=== PATIENT | female | born 1965 | race Caucasian/White ===

== ENCOUNTER 2016-03-19 06:39 | Day surgery (SDC) | payer BC ==
[2016-03-19] MEDS ORDERED: MIDAZOLAM HCL 2MG/2ML VIAL IV ONE (14:00)
[2016-03-19] MEDS ORDERED: LIDOCAINE 2% MDV (20MG/ML) 20ML VIAL IV ONE (14:00)
[2016-03-19] MEDS ORDERED: PROPOFOL 10 MG/ML VIAL IV ONE (14:00)
--- NOTE | 2016-03-22 07:50 | Operative Note ---
DATE OF SURGERY: 03/19/2016 SURGEON: Taylor De Anda MD OPERATION: COLONOSCOPY. INDICATIONS: This is a 51-year-old female with average risk for colorectal cancer who presented for screening colonoscopy. POSTOPERATIVE DIAGNOSIS: Normal colon. ANESTHESIA: Sedation is per Anesthesia. Pulse oximetry was monitored throughout the procedure to maintain O2 saturation of 90% or greater. Supplemental oxygen was administered via nasal cannula. Cardiac and vital signs were monitored throughout the duration of the procedure, and they were stable. The procedure of colonoscopy and risks and alternatives of the procedure, including the risk of bleeding and perforation, among others, were explained to the patient who voiced understanding and desired to have the procedure done. Physical examination was performed, and the patient was found stable for sedation. PROCEDURE: The patient was placed in the left lateral position. Sedation was initiated. A digital rectal exam was performed and showed some mild external hemorrhoids with no palpable rectal masses. An Olympus PCF-180AL colonoscope was then inserted into the rectum under direct visualization. It was advanced to the cecum without difficulty. The ileocecal valve and appendiceal orifice were identified and photographed. The colonic mucosa was carefully examined upon introduction of the colonoscope. There were no lesions noted. Upon withdrawal of the colonoscope, the colonic mucosa was carefully examined and there were no lesions noted. In the rectum, retroflexion was performed and grade 1 internal hemorrhoids were noted. The colonoscope was then withdrawn and the procedure was terminated. The patient tolerated the procedure well without any immediate complications. She remained with stable vital signs and was transferred to the recovery room. RECOMMENDATIONS: 1. She should be on a high-fiber diet. 2. She is to have a repeat colonoscopy for screening in 10 years. Thank you for allowing me to participate in the care of your patient. Taylor De Anda MD CC: Vannessa MCKEON
== END 2016-03-19 09:01 | disposition home or self-care (01) ==
LOC: HOP 06:39
PROVIDERS: ATTEND Internal Medicine Gastroenterology
DX: Z12.11 Encounter for screening for malignant neoplasm of colon (principal); I10 Essential (primary) hypertension; E11.9 Type 2 diabetes mellitus without complications; Z79.84 Long term (current) use of oral hypoglycemic drugs

== ENCOUNTER 2017-03-06 11:14 | Emergency (ER) | payer SELFPAY ==
--- NOTE | 2017-03-06 11:35 | Emergency Department Record ---
History of Present Illness - General Chief complaint: Abscess Stated complaint: BLISTER ON L FOOT Time Seen by Provider: 03/06/17 11:34 Source: Patient, Family Mode of Arrival: Ambulatory Limitations: No limitations - History of Present Illness Initial comments: pt has an ulcer on her foot that has been getting progressively worse. she has not been taking her insulin because she cannot afford it and does not have insurance. she has an appt w dr arboleda in 4 days Onset/Timin -: Week(s) Hx Tetanus Toxoid Vaccination: Yes Year of Tetanus Vaccination: 2013 Location: L foot Severity: Moderate Severity scale (1-10): 6 Consistency: Constant Improves with: Rest Worsens with: Palpation, Movement Treatments Prior to Arrival: OTC topical medication - Related Data Previous Rx's Medication Instructions Recorded Amoxicillin/Potassium Clav 1 tab PO BID #20 tablet 03/06/17 [Augmentin 875Mg/125Mg] Allergies Allergy/AdvReac Type Severity Reaction Status Date / Time metoprolol tartrate Allergy Intermediate SWELLING Verified 03/06/17 11:28 [From Lopressor] (GENERAL) statins Allergy Intermediate SWELLING Uncoded 03/06/17 11:28 (GENERAL) Travel Screening - Travel/Exposure Within Last 30 Days Have you traveled within the last 30 days?: No - Travel/Exposure Within Last Year Have you traveled outside the [place] in the last year?: No - Additonal Travel Details Have you been exposed to anyone with a communicable illness?: No - Travel Symptoms Symptom Screening: None Review of Systems Reviewed: No additional complaints except as noted below Constitutional: Reports: As per HPI. Denies: Chills, Fever, Malaise, Night sweats, Weakness, Weight change Eyes: Reports: As per HPI. Denies: Eye discharge, Eye pain, Photophobia, Vision change ENT: Reports: As per HPI. Denies: Congestion, Dental pain, Ear pain, Epistaxis , Hearing loss, Throat pain Respiratory: Reports: As per HPI. Denies: Cough, Dyspnea, Hemoptysis, Stridor, Wheezes Cardiovascular: Reports: As per HPI. Denies: Arrhythmia, Chest pain, Dyspnea on exertion, Edema, Murmurs, Orthopnea, Palpitations, Paroxysmal nocturnal dyspnea, Rheumatic Fever, Syncope Endocrine: Reports: As per HPI. Denies: Fatigue, Heat or cold intolerance, Polydipsia, Polyuria Gastrointestinal: Reports: As per HPI. Denies: Abdominal pain, Constipation, Diarrhea, Hematemesis, Hematochezia, Melena, Nausea, Vomiting Genitourinary: Reports: As per HPI. Denies: Abnormal menses, Discharge, Dyspareunia, Dysuria, Frequency, Hematuria, Incontinence, Retention, Urgency Musculoskeletal: Reports: As per HPI. Denies: Arthralgia, Back pain, Gout, Joint swelling, Myalgia, Neck pain Skin: Reports: As per HPI. Denies: Bruising, Change in color, Change in hair/ nails, Lesions, Pruritus, Rash Neurological: Reports: As per HPI. Denies: Abnormal gait, Confusion, Headache, Numbness, Paresthesias, Seizure, Tingling, Tremors, Vertigo, Weakness Psychiatric: Reports: As per HPI. Denies: Anxiety, Auditory hallucinations, Depression, Homicidal thoughts, Suicidal thoughts, Visual hallucinations Hematological/Lymphatic: Reports: As per HPI. Denies: Anemia, Blood Clots, Easy bleeding, Easy bruising, Swollen glands Past Medical History - SOCIAL HISTORY Smoking Status: Former smoker Alcohol Use: None Drug Use: None - RESPIRATORY Hx Respiratory Disorders: Yes Hx Sleep Apnea: Yes Hx of CPAP: No - CARDIOVASCULAR Hx Cardio Disorders: Yes Hx Cardiac Cath: Yes Hx Hypertension: Yes Comment:: quadruple bypass - NEURO Hx Neuro Disorders: Yes Hx Neuropathy: Yes - GI Hx GI Disorders: Yes Hx Reflux: Yes - Hx Genitourinary Disorders: Yes Hx UTI: Yes - ENDOCRINE Hx Endocrine Disorders: Yes - MUSCULOSKELETAL Hx Musculoskeletal Disorders: Yes Hx Arthritis: Yes - PSYCH Hx Psych Problems: Yes Hx Depression: Yes - HEMATOLOGY/ONCOLOGY Hx Hematology/Oncology Disorders: Yes Hx Blood Transfusions: Yes (after heart surgery) Family Medical History Any Significant Family History?: No Hx Cancer: Grandparents Hx Diabetes: Father, Mother Hx Heart Disease: Father Hx Kidney Disease: Father Physical Exam - General General Appearance: Alert, Oriented x3, Cooperative, Mild distress - Head Head exam: Normal inspection - Eye Eye exam: Normal appearance, PERRL, EOMI Pupils: Normal accommodation - ENT ENT exam: Normal exam, Mucous membranes moist, Normal external ear exam, Normal orophraynx Ear exam: Normal external inspection. negative: External canal tenderness Nasal Exam: Normal inspection. negative: Discharge, Sinus tenderness Mouth exam: Normal external inspection, Tongue normal Teeth exam: Normal inspection. negative: Dental caries Throat exam: Normal inspection. negative: Tonsillar erythema, Tonsillar exudate - Neck Neck exam: Normal inspection, Full ROM. negative: Tenderness - Respiratory Respiratory exam: Normal lung sounds bilaterally. negative: Respiratory distress - Cardiovascular Cardiovascular Exam: Regular rate, Normal rhythm, Normal heart sounds - GI/Abdominal GI/Abdominal exam: Soft, Normal bowel sounds. negative: Tenderness - Rectal Rectal exam: Deferred - exam: Deferred - Extremities Extremities exam: Normal inspection, Full ROM, Normal capillary refill, Tenderness Image of Feet: 1 - uler w tenderness and swelling - Back Back exam: Reports: Normal inspection, Full ROM. Denies: Muscle spasm, Rash noted, Tenderness - Neurological Neurological exam: Alert, CN II-XII intact, Normal gait, Oriented X3 - Psychiatric Psychiatric exam: Normal affect, Normal mood - Skin Skin exam: Dry, Intact, Normal color, Warm Course Vital Signs 03/06/17 11:18 Temperature 99.5 F Pulse Rate 80 Respiratory 18 Rate Blood Pressure 207/100 Pulse Ox 98 - Reevaluation(s) Reevaluation #1: 03/06/17 15:11 d/w susan who is arranging wound care and social work re getting insurance Medical Decision Making - Lab Data Result diagrams: 03/06/17 12:04 03/06/17 12:04 Disposition Disposition: Discharge Clinical Impression: Foot ulcer due to secondary DM Disposition: Home, Self-Care Condition: (1) Good Instructions: Diabetic Foot Ulcers (ED), Foot Care for People with Diabetes (ED ) Additional Instructions: follow up with dr arboleda on . return sooner if worse. soak foot 4 times a day. elevate foot. Prescriptions: Amoxicillin/Potassium Clav [Augmentin 875Mg/125Mg] 1 tab PO BID #20 tablet Forms: Patient Portal Access Quality - Quality Measures Quality Measures: N/A - Blood Pressure Screening Does Patient Have Any of the Following: Active Dx of HTN Blood Pressure Classification: Hypertensive Reading Systolic Measurement: 207 Diastolic Measurement: 100 Screening for High Blood Pressure: Patient Exclusion, Hx of HTN [G9744]
[2017-03-06] MEDS ORDERED: CARVEDILOL 3.125 MG TABLET PO ONE (11:47)
[2017-03-06] MEDS ORDERED: LISINOPRIL 10 MG TABLET PO ONE (11:47)
[2017-03-06 12:11] LABS: BASO % 0.3 % (0-6); EOS % 2.8 % (0-6); GRAN % 76.4 % (47-80); HEMOGLOBIN 11.9 gm/dl (11.6-16.0); LYMPH % 13.8 % (16-45); MEAN CELL VOLUME 84.9 fl (81-97); MEAN CORPUSCULAR HEMOGLOBIN 28.1 pg (27-33); MEAN CORPUSCULAR HGB CONC 33.1 g/dl (32-36); MEAN PLATELET VOLUME 9.9 fl (7.4-10.4); MONO % 6.7 % (0-9); PLATELET COUNT 235 K/uL (130-400); RED BLOOD COUNT 4.24 M/uL (3.80-5.40); RED CELL DISTRIBUTION WIDTH 11.9 % (11.5-14.5); WHITE BLOOD COUNT W/O DIFF 10.9 K/uL (4.2-12.2)
[2017-03-06 12:24] LABS: BLOOD UREA NITROGEN 12 mg/dL (6-20); CREATININE 0.6 mg/dL (0.5-0.9); EST GLOMERULAR FILTRATION RATE > 60 mL/min
[2017-03-06 12:27] LABS: GLUCOSE,RANDOM 275 mg/dL (74-109)
--- NOTE | 2017-03-07 08:17 | RADIOLOGY REPORT ---
EXAM: LEFT FOOT, THREE VIEWS HISTORY: PATIENT HAS A BLISTER ON THE PLANTAR ASPECT OF THE FOOT BETWEEN THE FIRST AND SECOND DIGITS. TECHNIQUE: Three views of the left foot are provided without comparison examinations. FINDINGS: There is no radiographic evidence of a fracture or dislocation of the left foot. Subchondral cysts are identified within the articular surface at the base of the second proximal phalanx. There is flattening of the second metatarsal head. 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 Small soft tissue ulcer is noted at the plantar aspect of the metatarsal phalangeal joints on the lateral radiograph. There is no osseous cortical destruction to suggest osteomyelitis, however, osteomyelitis cannot be excluded. If there is further clinical concern then MRI of the left foot can be obtained for further evaluation. IMPRESSION: 1. SMALL SOFT TISSUE ULCER IDENTIFIED AT THE PLANTAR ASPECT OF THE METATARSAL PHALANGEAL JOINTS DISCUSSED ABOVE. THERE IS NO OSSEOUS CORTICAL DESTRUCTION TO SUGGEST OSTEOMYELITIS. OSTEOMYELITIS, HOWEVER, CANNOT BE ENTIRELY EXCLUDED. IF THERE IS FURTHER CLINICAL CONCERN THEN MRI OF THE LEFT FOOT CAN BE OBTAINED FOR FURTHER EVALUATION. 2. 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 JOB NUMBER: [id number] [facility]
== END 2017-03-06 15:22 | disposition home or self-care (01) ==
LOC: ER 11:14
DX: E11.621 Type 2 diabetes mellitus with foot ulcer (principal); L97.529 Non-pressure chronic ulcer of other part of left foot with unspecified severity; E11.65 Type 2 diabetes mellitus with hyperglycemia; I10 Essential (primary) hypertension; Z87.891 Personal history of nicotine dependence; Z79.4 Long term (current) use of insulin
CPT/HCPCS: 99283; 99284; 85025; 80048; 73630; J3490

== ENCOUNTER 2017-05-30 18:12 | Emergency (ER) | payer BC ==
[2017-05-30] MEDS ORDERED: CLINDAMYCIN 600MG/50ML PREMIX 600 MG/50 ML BAG IVPB ONE (18:58)
[2017-05-30] MEDS ORDERED: ACETAMINOPHEN 500 MG TABLET PO ONE (19:04)
[2017-05-30] MEDS ORDERED: 0.9 % SODIUM CHLORIDE 1,000 ML BAG IV ONE (19:04)
[2017-05-30 19:07] LABS: BASO % 0.2 % (0-6); EOS % 0.3 % (0-6); HEMATOCRIT 34.4 % (35.0-47.0); HEMOGLOBIN 11.3 gm/dl (11.6-16.0); LYMPH % 4.8 % (16-45); MEAN CELL VOLUME 85.8 fl (81-97); MEAN CORPUSCULAR HGB CONC 32.8 g/dl (32-36); MEAN PLATELET VOLUME 10.1 fl (7.4-10.4); MONO % 7.9 % (0-9); PLATELET COUNT 261 K/uL (130-400); RED BLOOD COUNT 4.01 M/uL (3.80-5.40); RED CELL DISTRIBUTION WIDTH 12.5 % (11.5-14.5); WHITE BLOOD COUNT W/O DIFF 12.9 K/uL (4.2-12.2)
[2017-05-30 19:13] LABS: BLOOD UREA NITROGEN 19 mg/dL (6-20); EST GLOMERULAR FILTRATION RATE > 60 mL/min
[2017-05-30 19:14] LABS: MEAN CORPUSCULAR HEMOGLOBIN 28.1 pg (27-33); TOTAL PROTEIN 7.7 g/dL (6.6-8.7)
[2017-05-30 19:16] LABS: GLUCOSE,RANDOM 260 mg/dL (74-109)
[2017-05-30 19:18] LABS: ALB/GLOB RATIO 1.1 (1.1-1.8); ALBUMIN 4.1 g/dL (4.0-5.0); ALT/SGPT 32 U/L (<33); AST/SGOT 34 U/L (10.0-35.0)
[2017-05-30 19:19] LABS: ALKALINE PHOSPHATASE 162 U/L (35-104)
--- NOTE | 2017-05-30 20:26 | Emergency Department Record ---
History of Present Illness - General Chief complaint: Abscess Stated complaint: LT FOOT ULCER,CHILLS,FEVER,HEAD/BODY ACHES Time Seen by Provider: 05/30/17 18:48 Source: Patient Mode of Arrival: Ambulatory Limitations: No limitations - History of Present Illness Initial comments: pt has had an ulcer on the bottom of her foot for 2months that she has been seeing dr choi for. she had part of it cut out last week. over the last day she has been getting fevers, headache, swelling of her foot with redness and streaking up her ankle MD complaint: Abscess/boil Onset/Timin -: Days(s) Hx Tetanus Toxoid Vaccination: Yes Year of Tetanus Vaccination: 2013 Location: Generalized Severity: Mild Severity scale (1-10): 3 Quality: Aching Consistency: Constant Improves with: None Worsens with: None Context: None Associated symptoms: Chills, Fever, Malaise, Nausea Treatments Prior to Arrival: None - Related Data Home Medications Medication Instructions Recorded Confirmed Last Taken Insulin Detemir [Levemir] 30 unit SQ QAM 05/30/17 05/30/17 05/30/17 Insulin Detemir [Levemir] 40 unit SQ QPM 05/30/17 05/30/17 Unknown Allergies Allergy/AdvReac Type Severity Reaction Status Date / Time metoprolol tartrate Allergy Intermediate SWELLING Verified 05/30/17 18:41 [From Lopressor] (GENERAL) statins Allergy Intermediate SWELLING Uncoded 05/13/17 18:03 (GENERAL) Travel Screening - Travel/Exposure Within Last 30 Days Have you traveled within the last 30 days?: No Review of Systems Reviewed: No additional complaints except as noted below Constitutional: Reports: As per HPI, Chills, Fever. Denies: Malaise, Night sweats, Weakness, Weight change Eyes: Reports: As per HPI. Denies: Eye discharge, Eye pain, Photophobia, Vision change ENT: Reports: As per HPI. Denies: Congestion, Dental pain, Ear pain, Epistaxis , Hearing loss, Throat pain Respiratory: Reports: As per HPI. Denies: Cough, Dyspnea, Hemoptysis, Stridor, Wheezes Cardiovascular: Reports: As per HPI, Murmurs. Denies: Arrhythmia, Chest pain, Dyspnea on exertion, Edema, Orthopnea, Palpitations, Paroxysmal nocturnal dyspnea, Rheumatic Fever, Syncope Endocrine: Reports: As per HPI. Denies: Fatigue, Heat or cold intolerance, Polydipsia, Polyuria Gastrointestinal: Reports: As per HPI. Denies: Abdominal pain, Constipation, Diarrhea, Hematemesis, Hematochezia, Melena, Nausea, Vomiting Genitourinary: Reports: As per HPI. Denies: Abnormal menses, Discharge, Dyspareunia, Dysuria, Frequency, Hematuria, Incontinence, Retention, Urgency Musculoskeletal: Reports: As per HPI. Denies: Arthralgia, Back pain, Gout, Joint swelling, Myalgia, Neck pain Skin: Reports: As per HPI, Rash. Denies: Bruising, Change in color, Change in hair/nails, Lesions, Pruritus Neurological: Reports: As per HPI. Denies: Abnormal gait, Confusion, Headache, Numbness, Paresthesias, Seizure, Tingling, Tremors, Vertigo, Weakness Psychiatric: Reports: As per HPI. Denies: Anxiety, Auditory hallucinations, Depression, Homicidal thoughts, Suicidal thoughts, Visual hallucinations Hematological/Lymphatic: Reports: As per HPI. Denies: Anemia, Blood Clots, Easy bleeding, Easy bruising, Swollen glands Past Medical History - SOCIAL HISTORY Smoking Status: Former smoker Alcohol Use: None Drug Use: None - RESPIRATORY Hx Respiratory Disorders: Yes Hx Sleep Apnea: Yes Hx of CPAP: No - CARDIOVASCULAR Hx Cardio Disorders: Yes Hx Cardiac Cath: Yes Hx Chest Pain: Yes Hx Hypertension: Yes Comment:: quadruple bypass/stents - NEURO Hx Neuro Disorders: Yes Hx Neuropathy: Yes - GI Hx GI Disorders: Yes Hx Reflux: Yes - Hx Genitourinary Disorders: Yes Hx UTI: Yes - ENDOCRINE Hx Endocrine Disorders: Yes Hx Diabetes: Yes Hx Thyroid Disease: Yes Comment:: foot ulcer - MUSCULOSKELETAL Hx Musculoskeletal Disorders: Yes Hx Arthritis: Yes - PSYCH Hx Psych Problems: Yes Hx Depression: Yes - HEMATOLOGY/ONCOLOGY Hx Hematology/Oncology Disorders: Yes Hx Blood Transfusions: Yes (after heart surgery) Family Medical History Any Significant Family History?: Yes Hx Cancer: Grandparents Hx Diabetes: Father, Mother Hx Heart Disease: Father Hx Kidney Disease: Father Physical Exam - General General Appearance: Alert, Oriented x3, Cooperative, Mild distress - Head Head exam: Normal inspection - Eye Eye exam: Normal appearance, PERRL, EOMI Pupils: Normal accommodation - ENT ENT exam: Normal exam, Mucous membranes moist, Normal external ear exam, Normal orophraynx Ear exam: Normal external inspection. negative: External canal tenderness Nasal Exam: Normal inspection. negative: Discharge, Sinus tenderness Mouth exam: Normal external inspection, Tongue normal Teeth exam: Normal inspection. negative: Dental caries Throat exam: Normal inspection. negative: Tonsillar erythema, Tonsillar exudate - Neck Neck exam: Normal inspection, Full ROM. negative: Tenderness - Respiratory Respiratory exam: Normal lung sounds bilaterally. negative: Respiratory distress - Cardiovascular Cardiovascular Exam: Regular rate, Normal rhythm, Normal heart sounds, Systolic murmur - GI/Abdominal GI/Abdominal exam: Soft, Normal bowel sounds. negative: Tenderness - Rectal Rectal exam: Deferred - exam: Deferred - Extremities Extremities exam: Full ROM, Normal capillary refill, Tenderness Image of Feet: 1 - swelling , redness, tenderness 2 - ulcer - Back Back exam: Reports: Normal inspection, Full ROM. Denies: Muscle spasm, Rash noted, Tenderness - Neurological Neurological exam: Alert, CN II-XII intact, Normal gait, Oriented X3 - Psychiatric Psychiatric exam: Normal affect, Normal mood - Skin Skin exam: Dry, Intact, Normal color, Warm Course Vital Signs 05/30/17 18:36 Temperature 102.1 F H Pulse Rate 87 Respiratory 20 Rate Blood Pressure 123/84 Pulse Ox 97 Medical Decision Making - Lab Data Result diagrams: 05/30/17 18:40 05/30/17 18:40 Lab Results 05/30/17 05/30/17 Range/Units 18:40 18:40 WBC 12.9 H (4.2-12.2) K/uL RBC 4.01 (3.80-5.40) M/uL Hgb 11.3 L (11.6-16.0) gm/dl Hct 34.4 L (35.0-47.0) % MCV 85.8 (81-97) fl MCH 28.1 (27-33) pg MCHC 32.8 (32-36) g/dl RDW 12.5 (11.5-14.5) % Plt Count 261 (130-400) K/uL MPV 10.1 (7.4-10.4) fl Neutrophils % 73.0 (47-80) % Band Neutrophils % 12.0 H (0-5) % Lymphocytes % 4.8 L (16-45) % Monocytes % 7.9 (0-9) % Eosinophils % 0.3 (0-6) % Basophils % 0.2 (0-6) % Lymphocytes 7.0 L (16-45) % Monocytes 8.0 (0-9) % Basophils 0.0 (0-6) % Eosinophil Count 0.0 (0-6) % Sodium 130 L (136-145) mmol/L Potassium 4.6 H (3.4-4.5) mmol/L Chloride 85 L (98-107) mmol/L Carbon Dioxide 27.0 (22-29) mmol/L Anion Gap 18.0 H (7-16) BUN 19 (6-20) mg/dL Creatinine 1.0 H (0.5-0.9) mg/dL Estimated GFR > 60 mL/min Random Glucose 260 H (74-109) mg/dL Calcium 8.4 L (8.6-10.0) mg/dL Total Bilirubin 0.70 (0.2-1.0) mg/dL AST 34 (10.0-35.0) U/L ALT 32 (<33) U/L Alkaline Phosphatase 162 H (35-104) U/L Total Protein 7.7 (6.6-8.7) g/dL Albumin 4.1 (4.0-5.0) g/dL Globulin 3.6 (1.4-4.8) gm/dL Albumin/Globulin Ratio 1.1 (1.1-1.8) Disposition Disposition: Admit Clinical Impression: Diabetic foot infection Disposition: Still a Patient at [facility] Decision to Admit: Admit from ER Decision to Admit Date: 05/30/17 Decision to Admit Time: 20:31 Quality - Quality Measures Quality Measures: N/A - Blood Pressure Screening Does Patient Have Any of the Following: No Blood Pressure Classification: Pre-Hypertensive BP Reading Systolic Measurement: 123 Diastolic Measurement: 84 Screening for High Blood Pressure: < Pre-Hypertensive BP, F/U Documented > [ G8950] Pre-Hypertensive Follow-up Interventions: Follow-up with rescreen every year.
[2017-05-30] MEDS ORDERED: HYDROMORPHONE HCL 2 MG/ML VIAL IVP ONE (20:33)
[2017-05-30] MEDS ORDERED: CARVEDILOL 3.125 MG TABLET PO SCH (22:26)
[2017-05-30] MEDS ORDERED: ACETAMINOPHEN 500 MG TABLET PO PRN (22:26)
[2017-05-30] MEDS ORDERED: MELOXICAM 7.5 MG TABLET PO SCH (22:26)
[2017-05-30] MEDS ORDERED: TMP/SMZ 160MG/800MG TAB PO SCH (22:26)
[2017-05-30] MEDS ORDERED: HYDROXYZINE PAMOATE 25 MG CAPSULE PO PRN (22:37)
[2017-05-30] MEDS ORDERED: GLIPIZIDE 5 MG TABLET PO SCH (22:45)
[2017-05-30] MEDS ORDERED: LEVEMIR FLEXTOUCH 100 UNIT/ML INSULIN PEN SQ SCH (22:45)
[2017-05-30] MEDS ORDERED: METFORMIN 500 MG TABLET PO SCH (22:45)
[2017-05-30] MEDS ORDERED: GABAPENTIN 100 MG CAPSULE PO SCH (22:45)
[2017-05-31] MEDS ORDERED: PNEUM 23-VAL ADULT IM ONE (00:02)
[2017-05-31] MEDS ORDERED: 0.9 % SODIUM CHLORIDE 1,000 ML BAG IV ONE (00:08)
[2017-05-31] MEDS ORDERED: 0.9 % SODIUM CHLORIDE 1000ML 1,000 ML IV PRN (01:36)
[2017-05-31] MEDS ORDERED: PANTOPRAZOLE SODIUM 40 MG TABLET PO SCH (07:00)
[2017-05-31] MEDS ORDERED: LEVOTHYROXINE SODIUM 125 MCG TABLET PO SCH (07:00)
--- NOTE | 2017-05-31 07:33 | RADIOLOGY REPORT ---
EXAM: LEFT FOOT HISTORY: INFECTION. TECHNIQUE: Three views of the left foot were obtained. Comparison: None. Encounter: Initial. FINDINGS: Osteopenia. Negative for acute fracture or dislocation. Tiny calcaneal spurs. Vascular calcifications. Mild soft tissue swelling without soft tissue gas. Degenerative changes throughout the foot and ankle. IMPRESSION: NO ACUTE OSSEOUS ABNORMALITY. SOFT TISSUE SWELLING. NO SOFT TISSUE GAS. JOB NUMBER: [id number] [facility]TDD
[2017-05-31] MEDS ORDERED: LEVEMIR FLEXTOUCH 100 UNIT/ML INSULIN PEN SQ SCH (10:00)
[2017-05-31] MEDS ORDERED: FLUOXETINE HCL 20 MG CAPSULE PO SCH (10:00)
[2017-05-31] MEDS ORDERED: CLOPIDOGREL 75MG TABLET PO SCH (10:00)
[2017-05-31] MEDS ORDERED: AMLODIPINE BESYLATE 5MG TAB PO SCH (10:00)
[2017-05-31] MEDS ORDERED: ASPIRIN 81 MG CHEWABLE TABLET PO SCH (10:00)
[2017-05-31] MEDS ORDERED: HYDROCHLOROTHIAZIDE 25 MG TABLET PO SCH (10:00)
== END 2017-05-31 04:53 | disposition short-term general hospital (02) ==
LOC: ER 18:12 → UNDOADMIN 22:01 → MEDSURG 22:01 → UNDODISIN 05-31 04:53 → ER 05-31 04:53 → MEDSURG 05-31 04:53
DX: E11.621 Type 2 diabetes mellitus with foot ulcer (principal); L97.429 Non-pressure chronic ulcer of left heel and midfoot with unspecified severity; I95.9 Hypotension, unspecified; R11.0 Nausea; R50.81 Fever presenting with conditions classified elsewhere; R51 Headache; I10 Essential (primary) hypertension; Z95.1 Presence of aortocoronary bypass graft; Z87.891 Personal history of nicotine dependence; R05 Cough; Z79.4 Long term (current) use of insulin
CPT/HCPCS: 99285 ×2; 96365; 96375 ×2; 80053; 36416; 82948; 84484 ×2; 85027; 71046; 73630; 93005; 93010; J1170; J3490; 96374; J7030